=== PATIENT | male | born 1945 | race Caucasian/White ===

== ENCOUNTER 2019-08-24 09:04 | Outpatient (CLI) | payer MEDICARE, OTHER, SELFPAY ==
--- NOTE | ~2019-08-24 | CT_ITS ---
EXAMINATION: CT sinus wo con DATE: 08/24/2019 09:44 INDICATION: Chronic sinusitis TECHNIQUE: Computed tomography (CT) of the paranasal sinuses was performed without intravenous contra st. The dose-length product was 300.40 mGy-cm. Automated exposure control and iterative reconstructio n technique were employed. COMPARISON: No prior studies for comparison. FINDINGS: There is mucosal thickening of the ethmoid, frontal and right maxillary sinuses. The right ostiomeatal unit is partially occluded by soft tissue. The left ostiomeatal unit is patent. Minimal n harini septal deviation to the right. Mastoids are pneumatized. No mucoperiosteal reaction. IMPRESSION: 1. Mild sinus disease. Reviewed, dictated and finalized at location A. OM WORKER IMPRESSION: 1. Mild sinus disease.
== END 2019-08-24 09:05 | disposition home or self-care (01) ==
LOC: ANHIMG 09:06
PROVIDERS: PCP Internal Medicine; Visit Provider Otolaryngology
DX: J32.9 Chronic sinusitis, unspecified (principal)
CPT/HCPCS: 70486

== ENCOUNTER 2020-03-23 09:34 | Outpatient (CLI) | payer MEDICARE, OTHER, SELFPAY ==
[2020-03-23 09:57] LABS: Basophils Absolute Auto 0.1 K/mm3 (0.0-0.1); Basophils Percent Auto 1.3 % (0.2-1.2); Eosinophils Absolute Auto 0.3 K/mm3 (0-0.3); Eosinophils Percent Auto 3.9 % (0-4.4); Hematocrit 47.4 % (42.0-52.0); Hemoglobin 15.1 g/dL (14.0-18.0); Immature Granulocyte Absolute 0.04 K/mm3 (0.00-0.031); Immature Granulocyte Percent A 0.5 % (0-0.5); Lymphocytes Absolute Auto 1.71 K/mm3 (0.9-3.2); Lymphocytes Percent Auto 22.4 % (18.3-44.2); Mean Corpuscular HGB Conc 31.9 g/dl (32-36); Mean Corpuscular Hemoglobin 22.7 pg (26-34); Mean Corpuscular Volume 71.4 fl (80-100); Mean Platelet Volume 10.5 fl (7.4-10.4); Monocytes Absolute Auto 0.7 K/mm3 (0.1-0.6); Monocytes Percent Auto 8.9 % (2.6-8.5); Neutrophils Absolute Auto 4.8 K/mm3 (1.3-6.7); Platelet Count Result 321 k/mm3 (150-375); Red Blood Count 6.64 M/mm3 (4.6-6.20); Red Cell Distribution Width 17.9 % (11.5-14.5); White Blood Count 7.6 K/mm3 (4.5-10.0)
[2020-03-23 12:45] LABS: Alanine Aminotransferase 29 U/L (4-50); Albumin Level 4.6 g/dL (3.5-5.1); Alkaline Phosphatase 46 U/L (38-126); Anion Gap 8 mmol/L (8-16); Aspartate Amino Transferase 31 U/L (17-59); Bilirubin,Total 0.6 mg/dL (0.2-1.3); Blood Urea Nitrogen 19 mg/dL (9-20); Calcium 9.8 mg/dL (8.4-10.2); Carbon Dioxide 27 mmol/L (22-30); Chloride 103 mmol/L (98-107); Estimated Glomerular Filt Rate 59; Glucose 117 mg/dL (75-110); Immunoglobulin A 145 mg/dL (70-400); Immunoglobulin G 461 mg/dL (700-1600); Potassium 4.5 mmol/L (3.4-5.0); Sodium 138 mmol/L (137-145)
[2020-03-23 12:57] LABS: Immunoglobulin M < 25 mg/dL (40-230)
[2020-03-28 05:59] LABS: Albumin 4.5 g/dL (3.8-4.8); Alpha 1 Globulin 0.3 g/dL (0.2-0.3); Alpha 2 Globulin 0.7 g/dL (0.5-0.9); Beta 1 Globulin 0.5 g/dL (0.4-0.6); Gamma Globulin 0.4 g/dL (0.8-1.7); Protein, Total 6.7 g/dL (6.1-8.1)
[2020-03-29 09:49] LABS: Lambda Light Chain 7.4 mg/L (5.7-26.3)
== END 2020-03-23 09:35 | disposition home or self-care (01) ==
LOC: ANHLAB 09:42
PROVIDERS: PCP Internal Medicine; Visit Provider Internal Medicine Hematology & Oncology
DX: D47.2 Monoclonal gammopathy (principal)
CPT/HCPCS: 36415; 80053; 82784; 83883; 84155; 84165; 85025; 86334

== ENCOUNTER 2020-04-06 11:28 | Outpatient (CLI) | payer MEDICARE, OTHER, SELFPAY | END 2020-04-06 11:29 | disposition home or self-care (01) | LOC: ANHLAB 11:31 | PROVIDERS: PCP Internal Medicine; Visit Provider Internal Medicine Hematology & Oncology | DX: R71.8 Other abnormality of red blood cells (principal) | CPT/HCPCS: 36415; 81257 ==

== ENCOUNTER 2021-03-26 09:40 | Outpatient (CLI) | payer MEDICARE, OTHER, SELFPAY ==
[2021-03-26 10:28] LABS: Basophils Absolute Auto 0.1 K/mm3 (0.0-0.1); Basophils Percent Auto 1.2 % (0.2-1.2); Eosinophils Absolute Auto 0.3 K/mm3 (0-0.3); Eosinophils Percent Auto 3.6 % (0-4.4); Hematocrit 49.4 % (42.0-52.0); Hemoglobin 15.6 g/dL (14.0-18.0); Immature Granulocyte Absolute 0.03 K/mm3 (0.00-0.031); Immature Granulocyte Percent A 0.4 % (0-0.5); Lymphocytes Absolute Auto 1.67 K/mm3 (0.9-3.2); Mean Corpuscular HGB Conc 31.6 g/dl (32-36); Mean Corpuscular Hemoglobin 22.4 pg (26-34); Mean Corpuscular Volume 70.9 fl (80-100); Monocytes Absolute Auto 0.7 K/mm3 (0.1-0.6); Monocytes Percent Auto 9.5 % (2.6-8.5); Neutrophils Absolute Auto 4.8 K/mm3 (1.3-6.7); Neutrophils Percent Auto 63.3 % (45.5-73.1); Red Blood Count 6.97 M/mm3 (4.6-6.20); Red Cell Distribution Width 17.3 % (11.5-14.5); White Blood Count 7.6 K/mm3 (4.5-10.0)
[2021-03-26 12:39] LABS: Immunoglobulin A 141 mg/dL (70-400); Immunoglobulin G 488 mg/dL (700-1600)
[2021-03-26 12:40] LABS: Immunoglobulin M < 25 mg/dL (40-230)
[2021-03-30 05:23] LABS: Albumin 4.6 g/dL (3.8-4.8); Alpha 1 Globulin 0.2 g/dL (0.2-0.3); Alpha 2 Globulin 0.7 g/dL (0.5-0.9); Beta 1 Globulin 0.5 g/dL (0.4-0.6); Gamma Globulin 0.6 g/dL (0.8-1.7); Protein, Total 6.8 g/dL (6.1-8.1)
[2021-03-30 18:35] LABS: Kappa\\Lambda Light Chains 8.97 (0.26-1.65); Lambda Light Chain 8.9 mg/L (5.7-26.3)
== END 2021-03-26 09:41 | disposition home or self-care (01) ==
LOC: ANHLAB 09:43
PROVIDERS: PCP Internal Medicine; Visit Provider Internal Medicine Hematology & Oncology
DX: D47.2 Monoclonal gammopathy (principal)
CPT/HCPCS: 36415; 82784; 83883; 84155; 84165; 85025; 86334

== ENCOUNTER 2021-04-08 00:42 | Day surgery (SDC) | payer MEDICARE, OTHER, SELFPAY ==
[2021-03-31 13:49] VITALS: BMI 30.3
--- NOTE | 2021-04-07 19:36 | PM.HPGS ---
History of Present Illness History of Present Illness Consent: Risks, benefits, and alternatives have been discussed and questions answered. Patient agrees to proceed with procedure. Chief complaint: hx of colon polyps Narrative: Alfredo Nj is a 76 year old male with a history of polyps, here for colon cancer screening Review of Systems Review of Systems: All systems reviewed & are unremarkable except as noted in HPI and below PMFSH Past Medical History Medical History BPH (benign prostatic hyperplasia) Chronic GERD Obesity Social History Social History Smoking status: Never smoker Alcohol intake: current Drinks per week: 2 Living arrangements: with family Spiritual care concerns: No Meds Home Medications and Allergies Home Medications Medication Instructions Recorded Confirmed Type ascorbic acid (vitamin C) 1 g PO DAILY 03/31/21 03/31/21 History calcium carbonate 600 mg PO DAILY 03/31/21 03/31/21 History fenofibrate 160 mg PO DAILY 03/31/21 03/31/21 History finasteride 5 mg PO DAILY 03/31/21 03/31/21 History glucosamine-chondroitin [Osteo 1 tablet PO DAILY 03/31/21 03/31/21 History Bi-Flex] multivitamin [One A Day Vitamin] 1 tablet PO DAILY 03/31/21 03/31/21 History Allergies Allergy/AdvReac Type Severity Reaction Status Date / Time No Known Allergies Allergy Unknown Verified 04/08/21 06:26 Exam Resp: Auscultation: clear to auscultation bilaterally Cardio: Rate: regular rate Rhythm: regular rhythm GI: GI Palp: Yes Soft to palpation and No Tenderness to palpation present (GI) Assessment and Plan Assessment and plan (1) Colon cancer screening: Code(s): Z12.11 - Encounter for screening for malignant neoplasm of colon Status: Acute Assessment and Plan: Colonoscopy with possible biopsy or polypectomy or cautery or injection of substances.
[2021-04-08 06:29] VITALS: BP 144/84; PULSE 83; RESP 18; TEMP 36; O2SAT 98; BMI 30.1
[2021-04-08] MEDS: LACTATED RINGERS 1,000 ML 150 ML IV CONT (06:39)
--- NOTE | 2021-04-08 07:01 | P.PNAN_ITS ---
Anes - Initial Pre Proc Eval Procedure: Operation Date: 04/08/21 07:30 Proposed Procedures p Screening Colonoscopy - John Ledbetter MD Date/Time: 04/08/21 07:01 Surgeon: John Ledbetter MD Pre Op Diagnosis: hx of colon polyps Patient Data Age: 76 Gender: M Height: 1.78 m Weight: 95.3 kg Last Vital Signs Temp 36.0 C L 04/08/21 06:29 Pulse 83 04/08/21 06:29 Resp 18 04/08/21 06:29 BP 144/84 H 04/08/21 06:29 Pulse Ox 98 04/08/21 06:29 Allergies Allergy/AdvReac Type Severity Reaction Status Date / Time No Known Allergies Allergy Unknown Verified 04/08/21 06:26 Home Medications Medication Instructions Recorded Confirmed Type ascorbic acid (vitamin C) 1 g PO DAILY 03/31/21 03/31/21 History calcium carbonate 600 mg PO DAILY 03/31/21 03/31/21 History fenofibrate 160 mg PO DAILY 03/31/21 03/31/21 History finasteride 5 mg PO DAILY 03/31/21 03/31/21 History glucosamine-chondroitin [Osteo 1 tablet PO DAILY 03/31/21 03/31/21 History Bi-Flex] multivitamin [One A Day Vitamin] 1 tablet PO DAILY 03/31/21 03/31/21 History Patient hx anesthesia problems: none Family hx anesthesia problems: none [facility] Past Medical History Medical History (Updated 04/08/21 @ 07:03 by Tyree Ruiz MD) BPH (benign prostatic hyperplasia) Chronic GERD Obesity Social History Social History Smoking status: Never smoker Alcohol intake: current Drinks per week: 2 Living arrangements: with family Spiritual care concerns: No Anes - Eval Final PreProcedure Day of Procedure 04/08/21 07:01 Patient weight: obese Heart: regular rate and rhythm Lungs: clear to auscultation and normal air movement Airway: Mallampati scale class II Neurological: alert and oriented Last oral intake: >/= 8 hours ASA classification: III Emergent: no Anesthetic plan: proceed Anesthesia type and monitoring: general GIVS Informed Consent: The patient's anesthetic plan and its attendant risks and bene fits were discussed with the patient/family/POA. Questions were solicited and answers provided to the satisfaction of the patient/family/POA.
[2021-04-08 07:49] VITALS: BP 105/67; PULSE 73; RESP 18; O2SAT 100
[2021-04-08 07:59] VITALS: BP 108/67; PULSE 75; RESP 15; O2SAT 100
[2021-04-08 08:09] VITALS: BP 115/86; PULSE 72; RESP 18; O2SAT 96
== END 2021-04-08 08:23 | disposition home or self-care (01) ==
PROVIDERS: PCP Internal Medicine; Visit Provider Internal Medicine Gastroenterology
PROC: 0DJD8ZZ Inspection of Lower Intestinal Tract, Via Natural or Artificial Opening Endoscopic (ICD-10-PCS; CPT 45378; principal; 2021-04-08 07:30)
DX: Z12.11 Encounter for screening for malignant neoplasm of colon (principal); K63.5 Polyp of colon; K62.1 Rectal polyp; K64.4 Residual hemorrhoidal skin tags; K57.30 Diverticulosis of large intestine without perforation or abscess without bleeding; K21.9 Gastro-esophageal reflux disease without esophagitis; N40.0 Benign prostatic hyperplasia without lower urinary tract symptoms; E66.9 Obesity, unspecified; Z68.30 Body mass index [BMI] 30.0-30.9, adult
CPT/HCPCS: 45380; 88305; J2704; J7120

== ENCOUNTER 2022-03-29 09:49 | Outpatient (CLI) | payer MEDICARE, OTHER, SELFPAY ==
[2022-03-29 10:14] LABS: Basophils Absolute Auto 0.1 K/mm3 (0.0-0.1); Eosinophils Absolute Auto 0.3 K/mm3 (0-0.3); Eosinophils Percent Auto 3.9 % (0-4.4); Hematocrit 49.3 % (42.0-52.0); Hemoglobin 15.3 g/dL (14.0-18.0); Immature Granulocyte Absolute 0.02 K/mm3 (0.00-0.031); Immature Granulocyte Percent A 0.3 % (0-0.5); Lymphocytes Absolute Auto 1.76 K/mm3 (0.9-3.2); Lymphocytes Percent Auto 25.7 % (18.3-44.2); Mean Corpuscular Hemoglobin 22.6 pg (26-34); Mean Corpuscular Volume 72.8 fl (80-100); Mean Platelet Volume 10.5 fl (7.4-10.4); Monocytes Absolute Auto 0.7 K/mm3 (0.1-0.6); Monocytes Percent Auto 10.2 % (2.6-8.5); Neutrophils Percent Auto 58.9 % (45.5-73.1); Platelet Count Result 260 k/mm3 (150-375); Red Blood Count 6.77 M/mm3 (4.6-6.20); Red Cell Distribution Width 17.2 % (11.5-14.5); White Blood Count 6.8 K/mm3 (4.5-10.0)
[2022-03-29 14:15] LABS: Alanine Aminotransferase 26 U/L (6-50); Albumin Level 4.7 g/dL (3.5-5.1); Alkaline Phosphatase 50 U/L (38-126); Anion Gap 14 mmol/L (8-16); Aspartate Amino Transferase 32 U/L (17-59); Bilirubin,Total 0.9 mg/dL (0.2-1.3); Blood Urea Nitrogen 17 mg/dL (9-20); Calcium 8.7 mg/dL (8.4-10.2); Carbon Dioxide 28 mmol/L (22-30); Chloride 98 mmol/L (98-107); Estimated Glomerular Filt Rate > 60; Glucose 109 mg/dL (65-110); Potassium 4.5 mmol/L (3.4-5.0); Sodium 140 mmol/L (137-145)
[2022-03-29 16:30] LABS: Immunoglobulin A 148 mg/dL (70-400); Immunoglobulin G 398 mg/dL (700-1600)
[2022-03-29 16:32] LABS: Immunoglobulin M < 25 mg/dL (40-230)
[2022-03-31 12:04] LABS: Lambda Light Chain 8.1 mg/L (5.7-26.3)
[2022-03-31 21:03] LABS: Albumin 4.3 g/dL (3.8-4.8); Alpha 1 Globulin 0.3 g/dL (0.2-0.3); Alpha 2 Globulin 0.8 g/dL (0.5-0.9); Beta 1 Globulin 0.4 g/dL (0.4-0.6); Gamma Globulin 0.5 g/dL (0.8-1.7); Protein, Total 6.6 g/dL (6.1-8.1)
== END 2022-03-29 09:50 | disposition home or self-care (01) ==
LOC: ANHLAB 09:51
PROVIDERS: PCP Internal Medicine; Visit Provider Internal Medicine Hematology & Oncology
DX: D47.2 Monoclonal gammopathy (principal)
CPT/HCPCS: 36415; 80053; 82784; 83883; 84155; 84165; 85025

== ENCOUNTER 2024-04-22 10:30 | Outpatient (CLI) | payer MEDICARE, SELFPAY ==
--- NOTE | ~2024-04-22 | US_ITS ---
EXAMINATION: US thyroid DATE: 04/22/2024 10:59 INDICATION: Hypothyroidism. TECHNIQUE: Multiple ultrasound images of the thyroid were obtained. COMPARISON: None. FINDINGS: The right thyroid lobe measures 3.5 x 1.6 x 1.0 cm. The left thyroid lobe measures 3.0 x 1.1 x 1.0 c m. In the left thyroid lobe, there is 11 mm solid, hypoechoic, wider than tall nodule with smooth ma rgin without echogenic foci (TI-RADS TR4). IMPRESSION: 1. Left thyroid nodule. Consider thyroid ultrasound in one year. Reviewed, dictated and finalized at location A.
== END 2024-04-22 10:31 | disposition home or self-care (01) ==
LOC: MICIMG 10:31
PROVIDERS: PCP Internal Medicine; Visit Provider Internal Medicine
DX: E04.1 Nontoxic single thyroid nodule (principal); E03.9 Hypothyroidism, unspecified
CPT/HCPCS: 76536

== ENCOUNTER 2025-07-03 09:26 | Outpatient (CLI) | payer MEDICARE, SELFPAY ==
--- NOTE | ~2025-07-03 | XR_ITS ---
EXAM/PROCEDURE: XR barium swallow HISTORY: Dysphadia patient describes difficulty swallowing in the throat region. COMPARISON: None available. TECHNIQUE: Air-contrast esophagram performed. Thick and thin barium with effervescent crystals and 1.3 cm barium pill employed. Fluoroscopy time: 1.8 minutes DAP: 13.069 Jimenez per square centimeter Number of images: 20 FINDINGS: Mild tertiary contractions noted. No hiatal hernia or obstruction. 1.3 cm barium pill passed quickly. No large ulceration or extravasation of contrast. IMPRESSION: Mild tertiary contractions which are suggestive of esophagitis. The remainder the exam appears within normal limits. Given history provided, consider correlation with modified barium swallow or EGD for complete evaluation. Reviewed, dictated and finalized at location A. 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 The remainder t he exam appears within normal limits. Given history provided, consider correlat ion with modified barium swallow or EGD for complete evaluation.
== END 2025-07-03 09:27 | disposition home or self-care (01) ==
PROVIDERS: PCP Internal Medicine; Visit Provider Otolaryngology
DX: K22.4 Dyskinesia of esophagus (principal)
CPT/HCPCS: 74220